=== PATIENT | male | born 1950 | race Caucasian/White ===

== ENCOUNTER 2018-01-10 12:13 | Emergency (ER) | payer MEDICARE, BC ==
--- NOTE | 2018-01-10 13:01 | ED PDOC ---
HPI: Cardiac Arrest Time Seen by Provider: 01/10/18 12:41 History Per: EMS Reason For Code Blue: Full Arrest Circumstances: Brought To ED By EMS Arrest Witnessed By: Family () CPR Initiated Prior To MD Arrival?: Yes Down-Time Before ACLS: Unknown Treatment Initiated Prior To MD Arrival: CPR, BVM Ventilations, Intubation, Defibrillation, IVF, ACLS Medication Initiation, IV Access Medications Given Prior To MD Arrival: Epinephrine - Initial Findings Mentation: Unresponsive Respirations: None (Assisted) Pulse: None Rhythm: PEA Past Medical History Reviewed: Historical Data, Nursing Documentation, Vital Signs - Medical History PMH: HTN - Family History Family History: States: No Known Family Hx - Living Arrangements Living Arrangements: With Family - Social History Current smoker - smoking cessation education provided: No Alcohol: Social Drugs: Denies - Allergies Allergies/Adverse Reactions: Allergies Allergy/AdvReac Type Severity Reaction Status Date / Time No Known Allergies Allergy Verified 01/10/18 13:50 Review of Systems Review Of Systems: ROS cannot be obtained secondary to pt's inabilty to answer questions. Physical Exam - Reviewed Nursing Documentation Reviewed: Yes Vital Signs Reviewed: Yes - Physical Exam Head Exam: Positive for: ATRAUMATIC Eye Exam: Positive for: Other (pupils dilated equally) ENT: Positive for: Normal ENT Inspection Neck: Positive for: Normal Cardiovascular/Chest: Positive for: Other (no pulse) Respiratory: Positive for: Other (no effort) Gastrointestinal/Abdominal: Positive for: Normal Exam Male Genital Exam: Positive for: normal genitalia Rectal: Positive for: Deferred Extremity: Negative for: Swelling Neurologic/Psych: Positive for: Other (unresponsive) - Progress Condition: Unchanged - Critical Care Total Time (In Min): 20 Medical Decision Making Medical Decision Making: case d/w Dunia CAMERON Final decision is pending 1.50p ME called back. Will release body. Suggest diagnosis of hypertensive cardiovascular disease Procedures - Central Line Central Line Lumen: triple Central Line Procedure: betadine prep Disposition - Clinical Impression Clinical Impression: Cardiac arrest, Hypertensive cardiovascular disease - Disposition Disposition Time: 14:00 Condition: - POA Present On Arrival: None
[2018-01-10 13:33] LABS: ARTERIAL BLOOD GAS HCO3 14.3 mmol/L (21-28); ARTERIAL BLOOD GAS PCO2 48 mm/Hg (35-45); ARTERIAL BLOOD GAS PH 6.81 (7.35-7.45); ARTERIAL BLOOD GAS PO2 111 mm/Hg (80-100)
[2018-01-10 13:34] LABS: ARTERIAL BLOOD GAS FIO2 100 %; ARTERIAL BLOOD GAS O2 SAT 97.6 % (95-98); ARTERIAL BLOOD GAS TCO2 9.1 mmol/L (22-28)
[2018-01-10 18:57] VITALS: BP 78/67; O2SAT 70
== END 2018-01-10 17:41 ==
LOC: H.ER 12:13
DX: I46.9 Cardiac arrest, cause unspecified (principal); I11.9 Hypertensive heart disease without heart failure